=== PATIENT | male | born 1950 | race Caucasian/White ===

== ENCOUNTER 2017-12-31 21:29 | Emergency (ER) | payer BC, MEDICARE ==
[2017-12-31] MEDS ORDERED: HYDROmorphone 2 MG/ML SDV IM ONE (21:44)
[2017-12-31] MEDS ORDERED: Ondansetron 8 MG Tab.DIS PO ONE (21:44)
--- NOTE | 2018-01-01 11:45 | ER ---
DATE SEEN: 12/31/2017 TIME SEEN: The patient was seen at 2130 hours. HISTORY OF PRESENT ILLNESS: This 67-year-old gentleman was seen here 2 days ago and had a CAT scan for renal stones. The report is not out. He is noted to have 3 to 4 mm stones in the ureterovesical junction and this is presumed to have passed or going to be passed. He has multiple other renal stones noted on the CAT scan. Review of this CAT scan by myself demonstrated a stone at the right ureterovesical junction and a large stone int he right kidney which just at about to enter the pelivicaliyce.. Large stone is at least 0.55 mm. He has had previous left ureter lithotripsy and a stent placed in the right ureter. He has had multiple other stones. He drinks Gatorade. He was thought to possibly have a bowel obstruction when he came in 2 days ago, but a 3.8 mm stone was noted in his distal UV junction. Per his , he was advised that the stone should pass (per his who is [facility] nurse). He has multiple diverticula, but never had diverticulitis. The patient denies diarrhea, but he has had vomiting several times. PHYSICAL EXAMINATION: GENERAL: Denies fever. He has marked pain, 8/10 pain presently. Most of the pain is on the right side. HEENT: Negative. CARDIORESPIRATORY: Negative. NECK: Negative. LUNGS: Clear. HEART: Without murmur. ABDOMEN: Soft, no guarding, no abdominal discomfort. 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 GENITAL: Negative. EXTREMITIES: Lower extremities without abnormality. The patient is unable to pass urine. ASSESSMENT: 1. Recurrent ureteral stone with excessive pain. The patient requests that we give him pain medicine, then that we want get a CAT scan tomorrow.As they would save money because the insurance won"t cover the hospital ct scan . Their Insurance will cover in the clinic CT tomorrow. I acceded to their wishes and he got 2 mg of Dilaudid. His pain went down to a 2 and was feeling much better. He was not able to pass urine. There was no fever noted. Right renal stone, probably new stone that has passed from the calyectasisof the ureter. 2. Probably passed his documented left ureterovesical stone, 3.8 mm[facility] he has very little L CAV pain but now has the right CVA pain PLAN: Follow up with his doctor tomorrow. He has had Toradol before plus Flomax. He is taking Flomax. Continue his medicine as noted before. /[id number] ZITA/LUCIA CA
== END 2017-12-31 22:40 | disposition home or self-care (01) ==
LOC: FB.ED 21:29
DX: N20.1 Calculus of ureter (principal)
CPT/HCPCS: 36415; 80053; 93005; 96372; 99284; J1170